=== PATIENT | male | born 1990 | race Caucasian/White ===

== ENCOUNTER 2017-03-26 07:01 | Emergency (ER) | payer MEDICAID ==
--- NOTE | 2017-03-26 07:10 | ED Physician Chart ---
Chief Complaint/HPI - Patient Information Date Seen:: 03/26/17 Time Seen:: 07:05 Chief Complaint:: neck pain History of Present Illness:: 26-year-old male, history of narcotic abuse, walks into the emergency department complaining of acute, constant, worse with movement, sharp and aching , moderate to severe, nonradiating, neck pain since last night. Claims it is associated neck fracture. Is wearing a temporary hard c-collar. Says he was seen at a different ER last night was told he had a neck fracture but was discharged home. Says that he broke his neck by "just not paying attention" and that he told nursing staff that he "tripped and fell". Denies numbness or tingling of any extremities, headache, acute vision changes, loss of consciousness, head injury, chest pain, palpitations. Allergies:: Allergies Allergy/AdvReac Type Severity Reaction Status Date / Time Penicillins Allergy Verified 04/10/16 15:18 Historian:: Patient Review:: Nurse's Note Reviewed Review of Systems - Review of Systems Other: Complete system review otherwise unremarkable except as noted in history of present illness. Past Medical History - Past Medical History Past Medical History: Other (opiate addiction) Family History: None Social History: Non Smoker, No Alcohol, Illicit Drug Use Surgical History: None Psychiatricy History: None Medication: None Family Medical History - Family Member Mother History Unknown: Yes Ethnicity: Non- Physical Exam - Physical Examination Other:: INITIAL VITAL SIGNS: Reviewed by me GENERAL: Alert and interactive. No acute distress HEAD: Head is normocephalic and atraumatic EYES: EOMI. PERRL. No scleral icterus. No conjunctival injection ENT: Moist mucous membranes. NECK: Supple. No masses. C-collar in place. No tenderness to palpation. RESPIRATORY: No tachypnea. Clear breath sounds bilaterally. No wheezing, rales, or rhonchi CV: Regular rate and rhythm. No murmurs, rubs, or gallops ABDOMEN: Soft, non-distended, non-tender. No guarding. No rebound. No masses. EXTREMITIES: No deformity. No cyanosis. No edema. SKIN: Warm and dry. No obvious rashes. NEUROLOGIC: Alert and oriented. Face is symmetric. Speech is normal. Moves all extremities equally. Motor and sensory distally intact. Labs/Radiology/EKG Results - Radiology Results Results: CT cervical spine, thoracic spine, lumbar spine per radiology NAD ED Septic Shock - . Is Septic Shock (SBP<90, OR Lactate>4 mmol\\L) present?: No Reassessment (Disposition) - Reassessment Reassessment:: Blood pressure was noted to be elevated over 120/80. There were no signs of hypertension. Discussed the findings with the patient and recommended that the patient follow up with the primary care physician regarding the elevated blood pressure. Patient is refusing blood work. Originally refused CAT scan. Ultimately refused the head CT as well. CT of the thoracic lumbar and cervical spine were completed. There were no acute findings. No indication of neck fracture or cervical strain. He has normal cervical lordosis. Patient was discharged recommended to follow up with primary care 1-2 days. Return to ER precautions given. Patient says he understands and agrees with the plan. Reassessment Condition:: Improved - Diagnosis Diagnosis:: Acute neck pain - Aftercare/Follow up Instructions Aftercare/Follow-Up Instructions:: Counseled pt regarding lab results/diagnosis & need follow up, Refer to Discharge Instructions - Patient Disposition Discharge/Transfer:: Home Time:: 08:34 Condition at Disposition:: Improved ED Discharge Plan - Patient Disposition Admit/Discharge/Transfer: PT DISCHARGED HOME Condition at Disposition: Improved Additional Instructions: Neck pain Follow up with your primary care physician in one to 2 days. You can use over- the-counter medications for your pain relief.
--- NOTE | 2017-03-26 08:30 | Diagnostic Imaging Report ---
CT scan cervical spine HISTORY: Pain, trauma Total DLP equals 339 CTDI equals 14.8 Axial sections are obtained to the cervical spine. Additional sagittal and coronal reformatted images are provided. Exam is compromised by patient motion. Patient motion limits evaluation of the C6-7 level. This is more clearly visualized on the CT scan of the thoracic spine performed today. Degenerative changes are noted with spur formation noted about the endplates of C6. Allowing for artifact, no definite acute abnormalities are seen. No definite fractures. The prevertebral soft tissues appear normal. IMPRESSION: 1. Compromised/limited exam particularly at C6-7 due to motion artifact. Better visualized on today's CT scan of the thoracic spine. 2. No definite acute abnormalities
--- NOTE | 2017-03-26 08:31 | Diagnostic Imaging Report ---
CT scan thoracic spine HISTORY: Pain, trauma Total DLP equals 1567 CTDI equals 39.6 Axial sections were obtained through the thoracic spine. Additional sagittal and coronal reformatted images are provided. No acute bony abnormalities. No fractures are seen. Alignment is normal. Minimal spur formation noted about the endplates of several upper thoracic vertebrae. No significant extradural abnormalities. IMPRESSION: 1. No acute abnormalities 2. Minimal degenerative changes
--- NOTE | 2017-03-26 08:34 | Diagnostic Imaging Report ---
CT scan lumbar spine HISTORY: Pain, trauma Total DLP equals 1248 CTDI equals 45.0 The exam of the L5-S1 level demonstrate minimal spur formation about the vertebral endplates. Suggestion of a mild (2 mm) central disc protrusion is obscuration of anterior epidural fat. No significant deformity on the thecal sac. The L4-5 level is normal. The L3-4 level is normal. No abnormality seen about the L1-2 or L2-3 levels. No fractures. Partial visualization of what may be related to a markedly distended urinary bladder. IMPRESSION: 1. No acute abnormalities 2. Mild degenerative changes L5-S1 along suggestion of mild central disc protrusion at this level 3. Partial visualization of what may be a severely distended urinary bladder. Clinical correlation is needed.
== END 2017-03-26 08:15 | disposition home or self-care (01) ==
LOC: ER 07:01
DX: M54.2 Cervicalgia (principal); Z88.0 Allergy status to penicillin; Z59.0 Homelessness
CPT/HCPCS: 72125-TC; 72128-TC; 72131-TC; Z7502

== ENCOUNTER 2017-03-28 04:20 | Emergency (ER) | payer MEDICAID | END 2017-03-28 04:35 | disposition home or self-care (01) | LOC: ER 04:20 | DX: M54.2 Cervicalgia (principal) ==

== ENCOUNTER 2018-03-14 11:07 | Emergency (ER) | payer MEDICAID ==
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
--- NOTE | 2018-03-14 13:13 | Diagnostic Imaging Report ---
CT scan of the brain without contrast History: Headache, trauma Total DLP equals 673 CTDI equals 35.7 Axial sections were obtained from the base of the skull to the vertex. There is a normal ventricular system size. No focal parenchymal lesions are seen. No evidence of any mass effect or shift of midline structures. No extra-axial masses or abnormal fluid collections. Impression: Negative examination
--- NOTE | 2018-03-14 13:15 | Diagnostic Imaging Report ---
CT scan facial bones HISTORY: Pain, trauma Total DLP equals 326 CTDI equals 15.1 Axial sections were obtained through the facial bones. Additional coronal and sagittal reformatted images are provided. There is retention of normal bony margins about the orbits. No fractures. The zygomatic arches are intact. The pterygoid plates are intact. There is a mildly displaced fracture of the nasal bones. There is deviation of the nasal septum to the left. Elizabeth bullosa involves the right superior nasal turbinate. IMPRESSION: 1. Mildly displaced fracture of the nasal bones
--- NOTE | 2018-03-14 13:16 | Diagnostic Imaging Report ---
CT scan cervical spine HISTORY: Pain, trauma Total DLP equals 260 CTDI equals 14.7 Axial sections were obtained through the cervical spine. Additional sagittal and coronal reformatted images are provided. Alignment is normal. Disc spaces are maintained. Minimal spur formation noted about the endplates at C6-7. No focal bony lesions. No fractures. The margins of the cervical spinal cord or not clearly visualized. The prevertebral soft tissues appear normal. IMPRESSION: 1. No acute abnormalities 2. Mild degenerative changes C6-7
== END 2018-03-14 13:40 | disposition home or self-care (01) ==
LOC: ER 11:07
DX: S02.2XXA Fracture of nasal bones, initial encounter for closed fracture (principal); S16.1XXA Strain of muscle, fascia and tendon at neck level, initial encounter; S09.90XA Unspecified injury of head, initial encounter; F17.200 Nicotine dependence, unspecified, uncomplicated; Z88.0 Allergy status to penicillin; Y08.89XA Assault by other specified means, initial encounter; Y93.89 Activity, other specified; Y92.89 Other specified places as the place of occurrence of the external cause; Y99.8 Other external cause status
CPT/HCPCS: 70450-TC; 70486-TC; 72125-TC; Z7502

== ENCOUNTER 2018-05-18 02:23 | Emergency (ER) | payer MEDICAID ==
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
[2018-05-18 03:05] LABS: % BASOPHILS 0.5 % (0.0-2.0); % EOSINOPHILS 2.4 % (0.0-5.0); % LYMPHOCYTES 19.6 % (20.0-50.0); % MONOCYTES 5.7 % (2.0-10.0); % NEUTROPHILS 71.8 % (40.0-80.0); EOSINOPHILE ABSOLUTE 0.1 Th/cmm (0.1-0.4); HEMATOCRIT 39.7 % (41.0-60); HEMOGLOBIN 13.3 gm/dL (12-16); LYMPHOCYTE ABSOLUTE 1.2 Th/cmm (1.5-3.0); MEAN CELL VOLUME 85.5 fl (80-99); MEAN CORPUSCULAR HEMOGLOBIN 28.7 pg (26.0-30.0); MEAN CORPUSCULAR HGB CONC 33.6 pg (28.0-36.0); MEAN PLATELET VOLUME 7.2 fl; MONOCYTE ABSOLUTE 0.3 Th/cmm (0.3-1.0); NEUTROPHILE ABSOLUTE 4.5 Th/cmm (1.8-8.0); PLATELET COUNT 195 Th/cmm (150-400); RED BLOOD COUNT 4.64 Mil/cmm (4.30-5.70); RED CELL DISTRIBUTION WIDTH 12.2 % (11.5-20.0); WHITE BLOOD COUNT 6.1 Th/cmm (4.8-10.8)
[2018-05-18 03:21] LABS: ALBUMIN 4.2 gm/dL (4.2-5.5); ALKALINE PHOSPHATASE 51 U/L (34-104); ANION GAP 12.1 (7.0-16.0); BILIRUBIN,TOTAL 1.7 mg/dL (0.3-1.0); BUN - UREA NITROGEN 16 mg/dL (7-25); CARBON DIOXIDE 24.3 mEq/L (21.0-31.0); CHLORIDE 102 mEq/L (98-107); GFR AFRICAN-AMERICAN > 60.0 ml/min (>90); GFR NON AFRICAN-AMERICAN > 60.0 ml/min; GLUCOSE 79 mg/dL (70-105); POTASSIUM SERUM 3.4 mEq/L (3.5-5.1); SGOT 36 U/L (13-39); SGPT/ALT 37 U/L (7-52); SODIUM SERUM 135 mEq/L (136-145); TOTAL PROTEIN,SERUM 6.3 gm/dL (6.0-8.3)
[2018-05-18 03:43] LABS: URINE MICROSCOPIC INDICATED? YES; URINE SOURCE CLEAN C
[2018-05-18 03:45] LABS: URINE BILIRUBIN NEGATIVE (NEGATIVE); URINE BLOOD NEGATIVE (NEGATIVE); URINE GLUCOSE (UA) NEGATIVE (NEGATIVE); URINE KETONE NEGATIVE (NEGATIVE); URINE LEUKOCYTE ESTERASE NEGATIVE (NEGATIVE); URINE NITRATE NEGATIVE (NEGATIVE); URINE PROTEIN NEGATIVE (NEGATIVE); URINE UROBILINOGEN 0.2 E.U./dL (0.2 - 1.0)
[2018-05-18 03:58] LABS: AMPHETAMINE URINE POSITIVE (NEGATIVE)
[2018-05-18 03:59] LABS: BARBITURATES URINE NEGATIVE (NEGATIVE); BENZODIAZEPINES QUAL URINE NEGATIVE (NEGATIVE); CANNABINOID THC NEGATIVE (NEGATIVE); COCAINE METABOLITE QUAL URINE NEGATIVE (NEGATIVE); METHADONE URINE NEGATIVE (NEGATIVE); METHAMPHETAMINES QUAL URINE NEGATIVE (NEGATIVE); OPIATES (MORPHINE) QUAL. URINE NEGATIVE (NEGATIVE); PHENCYCLIDINE (PCP) URINE NEGATIVE (NEGATIVE); TRICYCLICS (TCA) QUAL. URINE NEGATIVE (NEGATIVE)
[2018-05-18 04:01] LABS: URINE BACTERIA NONE SEEN /hpf (NONE SEEN); URINE CLARITY CLEAR (CLEAR); URINE COLOR YELLOW; URINE EPITHELIAL CELLS NONE SEEN /lpf (FEW); URINE RBC NONE SEEN /hpf (0-5); URINE WBC NONE SEEN /hpf (0-5)
[2018-05-18] MEDS ORDERED: Potassium Chloride Elixir 20 mEq /15 mL UDC ONE (08:32)
[2018-05-18] MEDS: Potassium Chloride Elixir 20 mEq /15 mL UDC PO ONE ×2 (08:56→09:02)
[2018-05-18] MEDS ORDERED: TETRACAINE HCL 0.5% OPHTH SOLN 4ML BOTTLE ONE (23:17)
[2018-05-19] MEDS ORDERED: Tetracaine 0.5% Ophth Soln 15 mL Soln RIGHT EYE ONE (05:45)
[2018-05-19] MEDS ORDERED: Fluorescein Sodium 1 mg Ophth Strip ONE (06:31)
[2018-05-19] MEDS ORDERED: Fluorescein Sodium 1 mg Ophth Strip RIGHT EYE ONE (07:09)
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
--- NOTE | 2018-05-20 20:51 | Progress Notes ---
DATE: 05/20/2018 Case was discussed with staff of the patient, reviewed records. I also talked to the doctor salesperson pets and pet supplies and apparently had to close this one because he wanted to leave. He feels bored when I talked to him. He denies any current intent to harm himself or anybody. Denies any current auditory or visual hallucination. Denies feeling paranoid. Admits using drugs. He ____. He reports, he has no place to go, so at this point, I do not have enough information to extend the hold as the patient is willing to comply. He has no place to go. The staff report they know his mother; however, does not talk to his family has multiple arrests before and it is the impression of the staff that probably this patient, get away with getting arrest when he is arrested by saying he has mental illness, so since he is refusing to take any antipsychotic, he just wants to be on medications such as Ativan and Xanax. So at this point, the patient will be sent to a group home and recommended to follow up with a psychiatrist and a therapist in a CD program. Thank you very much for allowing me to participate in the care of this most interesting gentleman. JOB# [id number]
== END 2018-05-20 13:40 | disposition short-term general hospital (02) ==
LOC: ER 02:23
DX: S21.239A Puncture wound without foreign body of unspecified back wall of thorax without penetration into thoracic cavity, initial encounter (principal); F29 Unspecified psychosis not due to a substance or known physiological condition; F15.20 Other stimulant dependence, uncomplicated; F17.200 Nicotine dependence, unspecified, uncomplicated; Z88.0 Allergy status to penicillin; W26.8XXA Contact with other sharp object(s), not elsewhere classified, initial encounter; Y93.89 Activity, other specified; Y92.89 Other specified places as the place of occurrence of the external cause; Y99.8 Other external cause status
CPT/HCPCS: 99285; 96372 ×3; 84484; 36415; 80307; 84443; 85025; 81001; 80329 ×2; 80320; 80053; 90715; J2060 ×2; J1200

== ENCOUNTER 2018-06-06 19:43 | Emergency (ER) | payer SELFPAY ==
[2018-06-06] MEDS ORDERED: Lactated Ringer 1,000 ML IV ONE (20:24)
--- NOTE | 2018-06-06 22:11 | ED Physician Chart ---
ED Chief Complaint/HPI - Patient Information Date Seen:: 06/06/18 Time Seen:: 19:45 Chief Complaint:: headache History of Present Illness:: headache on clonazepam and tramadol. Allergies:: Allergies Allergy/AdvReac Type Severity Reaction Status Date / Time Penicillins Allergy Verified 05/18/18 02:39 Vitals:: Vital Signs - 8 hr 06/06/18 19:45 Temp 98.3 F HR 107 RR 18 BP 138/91 O2 Sat % 97 ED Review of Systems - Review of Systems General/Constitutional: No fever, No chills, No weight loss, No weakness, No diaphoresis, No edema, No loss of appetite Skin: No skin lesions, No rash, No bruising Head: Headache Eyes: No loss of vision, No pain, No diplopia ENT: No earache, No nasal drainage, No sore throat, No tinnitus Neck: No neck pain, No swelling, No thyromegaly, No stiffness, No mass noted Cardio Vascular: No chest pain, No palpitations, No PND, No orthopnea, No edema Pulmonary: No SOB, No cough, No sputum, No wheezing GI: No nausea, No vomiting, No diarrhea, No pain, No melena, No hematochezia, No constipation, No hematemesis G/U: No dysuria, No frequency, No hematuria Musculoskeletal: No bone or joint pain, No back pain, No muscle pain Endocrine: No polyuria, No polydipsia Psychiatric: No prior psych history, No depression, No anxiety, No suicidal ideation Hematopoietic: No bruising, No lymphadenopathy Allergic/Immuno: No urticaria, No angioedema Neurological: No syncope, No focal symptoms, No weakness, No paresthesia, No headache, No seizure, No dizziness, No confusion, No vertigo ED Past Medical History - Past Medical History Past Medical History: No significant medical hx Social History: Illicit Drug Use, Other (takes Tramadol and Clonazepam) Family Medical History - Family Member Mother History Unknown: Yes Ethnicity: Non- ED Physical Exam - Physical Examination General/Constitutional: Awake, Well-developed, well-nourished, Alert, No distress, GCS 15, Non-toxic appearing, Ambulatory Head: Atraumatic Eyes: Lids, conjuctiva normal, PERRL, EOMI Skin: Nl inspection, No rash, No skin lesions, No ecchymosis, No lymphadenopathy ENMT: External ears, nose nl, Nasal exam nl, Lips, teeth, gums nl Other ENMT comments:: dry tongue mucosa Neck: Nontender, Full ROM w/o pain, No JVD, No nuchal rigidity, No bruit, No mass, No stridor Respiratory: Nl effort/Exclusion, Clear to Auscultation, No Wheeze/Rhonchi/Rales Cardio Vascular: RRR, No murmur, gallop, rubs, NL S1 S2 GI: No tenderness/rebounding/guarding, No organomegaly, No hernia, Normal BS's, Nondistended, No mass/bruits, No McBurney tenderness : No CVA tenderness Extremities: No tenderness or effusion, Full ROM, normal strength in all extremities, No edema, Normal digits & nails Neuro/Psych: Alert/oriented, Normal sensory exam, Normal motor strength, Judgement/insight normal, Mood normal, Normal gait, No focal deficits Misc: Normal back, No paraspinal tenderness ED Assessment - Assessment Assessment/Comments:: improved, but wants a prescription for pain pills. I told him that I would write for Ibuprofen for him. ED Septic Shock - . Is Septic Shock (SBP<90, OR Lactate>4 mmol\L) present?: No - <6hrs of presentation: Vital Signs: Vital Signs - 8 hr 06/06/18 19:45 Temp 98.3 F HR 107 RR 18 BP 138/91 O2 Sat % 97 ED Reassessment (Disposition) - Reassessment Reassessment Condition:: Improved - Diagnosis Diagnosis:: Headache due to dehydration. Drug seeking behavior. - Aftercare/Follow up Instructions Aftercare/Follow-Up Instructions:: Refer to Discharge Instructions - Patient Disposition Discharge/Transfer:: Home Condition at Disposition:: Stable, Improved
== END 2018-06-06 23:10 | disposition home or self-care (01) ==
LOC: ER 19:43
DX: E86.0 Dehydration (principal); R51 Headache; Z76.5 Malingerer [conscious simulation]; Z88.0 Allergy status to penicillin
CPT/HCPCS: 99284; 96361; 96374; J1885; Z7502

== ENCOUNTER 2018-11-10 15:38 | Emergency (ER) | payer MEDICAID ==
--- NOTE | 2018-11-10 16:44 | ED Physician Chart ---
ED Chief Complaint/HPI - Patient Information Date Seen:: 11/10/18 Time Seen:: 16:40 Chief Complaint:: lt ear pain History of Present Illness:: 27 yr old male here with lt ear pain for few days has allergy to pcn Allergies:: Allergies Allergy/AdvReac Type Severity Reaction Status Date / Time Penicillins Allergy Verified 05/18/18 02:39 Vitals:: Vital Signs - 8 hr 11/10/18 15:47 Temp 98.1 F HR 102 RR 16 BP 133/83 O2 Sat % 97 ED Review of Systems - Review of Systems General/Constitutional: No fever, No chills, No weight loss, No weakness, No diaphoresis, No edema, No loss of appetite Skin: No skin lesions, No rash, No bruising Head: No headache, No light-headedness Eyes: No loss of vision, No pain, No diplopia ENT: Earache Neck: No neck pain, No swelling, No thyromegaly, No stiffness, No mass noted Cardio Vascular: No chest pain, No palpitations, No PND, No orthopnea, No edema Pulmonary: No SOB, No cough, No sputum, No wheezing GI: No nausea, No vomiting, No diarrhea, No pain, No melena, No hematochezia, No constipation, No hematemesis G/U: No dysuria, No frequency, No hematuria Musculoskeletal: No bone or joint pain, No back pain, No muscle pain Endocrine: No polyuria, No polydipsia Psychiatric: No prior psych history, No depression, No anxiety, No suicidal ideation Hematopoietic: No bruising, No lymphadenopathy Allergic/Immuno: No urticaria, No angioedema Neurological: No syncope, No focal symptoms, No weakness, No paresthesia, No headache, No seizure, No dizziness, No confusion, No vertigo ED Past Medical History - Past Medical History Past Medical History: No significant medical hx Family Medical History - Family Member Mother History Unknown: Yes Ethnicity: Non- ED Physical Exam - Physical Examination General/Constitutional: Awake, Well-developed, well-nourished, Alert, No distress, GCS 15, Non-toxic appearing, Ambulatory Head: Atraumatic Eyes: Lids, conjuctiva normal, PERRL, EOMI Skin: Nl inspection, No rash, No skin lesions, No ecchymosis, Well hydrated, No lymphadenopathy ENMT: External ears, nose nl, Nasal exam nl, Lips, teeth, gums nl Neck: Nontender, Full ROM w/o pain, No JVD, No nuchal rigidity, No bruit, No mass, No stridor Other Neck comments:: lt tm reddness and rt wound hand scar Respiratory: Nl effort/Exclusion, Clear to Auscultation, No Wheeze/Rhonchi/Rales Cardio Vascular: RRR, No murmur, gallop, rubs, NL S1 S2 GI: No tenderness/rebounding/guarding, No organomegaly, No hernia, Normal BS's, Nondistended, No mass/bruits, No McBurney tenderness : No CVA tenderness Extremities: No tenderness or effusion, Full ROM, normal strength in all extremities, No edema, Normal digits & nails Neuro/Psych: Alert/oriented, DTR's symmetric, Normal sensory exam, Normal motor strength, Judgement/insight normal, Mood normal, Normal gait, No focal deficits Misc: Normal back, No paraspinal tenderness ED Assessment - Assessment General Assessment: lt om ED Septic Shock - . Is Septic Shock (SBP<90, OR Lactate>4 mmol\L) present?: No - <6hrs of presentation: Vital Signs: Vital Signs - 8 hr 11/10/18 15:47 Temp 98.1 F HR 102 RR 16 BP 133/83 O2 Sat % 97 ED Reassessment (Disposition) - Reassessment Reassessment Condition:: Unchanged - Diagnosis Diagnosis:: lt om drug seeking behaviour - Aftercare/Follow up Instructions Medication Prescribed:: azithromycin 500 mg qd for 5 days tyl prn - Patient Disposition Discharge/Transfer:: Home Condition at Disposition:: Stable
== END 2018-11-10 16:55 | disposition home or self-care (01) ==
LOC: ER 15:38
DX: H66.92 Otitis media, unspecified, left ear (principal); Z72.89 Other problems related to lifestyle; Z88.0 Allergy status to penicillin
CPT/HCPCS: Z7502